=== PATIENT | male | born 1980 | race Caucasian/White ===

== ENCOUNTER 2017-10-18 10:17 | Emergency (ER) | payer SELFPAY ==
[~2017-10-18] VITALS: Ht 175.3 cm; Wt 95.0 kg
[~2017-10-18 10:17] MED LIST: DICY1TAB26 PO; PRIL40CA PO
[2017-10-18 10:21] VITALS: BP 155/75; PULSE 48; RESP 12; TEMP 97.8; O2SAT 98
--- NOTE | 2017-10-18 10:40 | PD ---
HPI Chief Complaint: Back/ Neck Pain or Injury Time Seen by Provider: 10:24 Travel History International Travel<30 days: No Contact w/Intl Traveler<30days: No Traveled to known affect area: No History of Present Illness HPI 37-year-old male with history of right sided arm pain and numbness for the last year. The patient states he is currently being worked up for disability. Patient states numbness in the right thumb, index, and middle finger. He states 4 days ago he developed right shoulder and neck pain as well. He denies any specific injury or recent straining of this area. Patient is noted to be wearing a tennis elbow splint but no carpal tunnel splint. 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 He is waiting to see the disability doctors at this time. On local primary care physician. Patient states in the past he was on gabapentin, but has not been on it for months. He rates his pain in the neck as 8 out of 10 and worse with certain movements. He has no other acute complaints. He has no known drug allergies. [facility] Past Medical History Diverticulitis: Yes Past Surgical History Abdominal Surgery: Yes (hernia repair) Social History Alcohol Use: No Tobacco Use: Yes Substance Use: Yes (marijuana) Allergies-Medications (Allergen,Severity, Reaction): Coded Allergies: No Known Allergies (Unverified , 12/27/15) Reported Meds & Prescriptions Reported Meds & Active Scripts Active Tramadol (Tramadol HCl) 50 Mg Tab 50 Mg PO Q6H PRN Gabapentin 300 Mg Cap 300 Mg PO TID Prednisone 20 Mg Tab 20 Mg PO BID 7 Days Prilosec 40 mg cap (Omeprazole) 40 Mg Cap 40 Mg PO DAILY Bentyl (Dicyclomine HCl) 20 Mg Tab 20 Mg PO Q6H FOR CRAMPS Review of Systems Except as stated in HPI: all other systems reviewed are Neg General / Constitutional: No: Fever Eyes: No: Visual changes HENT: No: Headaches Cardiovascular: No: Chest Pain or Discomfort Respiratory: No: Shortness of Breath Gastrointestinal: No: Abdominal Pain Genitourinary: No: Dysuria Musculoskeletal: Positive: Myalgias, Arthralgias, Limited ROM, Pain Skin: No Rash Neurologic: No: Weakness Psychiatric: No: Depression Endocrine: No: Polydipsia Hematologic/Lymphatic: No: Easy Bruising Physical Exam Narrative GENERAL: Patient appears in no obvious distress. SKIN: Warm and dry. Color. Normal turgor. No rash. HEAD: Atraumatic. Normocephalic. EYES: Pupils equal and round. No scleral icterus. No injection or drainage. ENT: No nasal bleeding or discharge. Mucous membranes pink and moist. [place] clear. Airway is patent. NECK: Trachea midline. No bony tenderness or step-off. Range of motion is full. CARDIOVASCULAR: Regular rate and rhythm. RESPIRATORY: No accessory muscle use. Clear to auscultation. Breath sounds equal bilaterally. MUSCULOSKELETAL: Extremities without clubbing, cyanosis, or edema. No obvious deformities. Patient has grossly positive Tinel's sign at the right carpal tunnel region as well as at the right medial elbow. Patient is reproducible radicular pain palpation of the right posterior shoulder along the upper edge of the scapula. Patient has decreased mutual funds agent strength in the thumb index and ring finger. Rest of exam is unremarkable. NEUROLOGICAL: Awake and alert. No obvious cranial nerve deficits. Motor grossly within normal limits. Five out of 5 muscle strength in the arms and legs. Normal speech. PSYCHIATRIC: Appropriate mood and affect; insight and judgment normal. Data Data Last Documented VS Vital Signs Date Time Temp Pulse Resp B/P (MAP) Pulse Ox O2 Delivery O2 Flow Rate FiO2 10/18/17 10:21 97.8 48 12 155/75 (101) 98 Orders Orders Prednisone (Deltasone) (10/18/17 10:45) Splint Or Brace Apply/Monitor (10/18/17 10:38) Ed Discharge Order (10/18/17 10:55) Cockup Hand Splint (10/18/17 ) [facility] Medical Decision Making Medical Screen Exam Complete: Yes Emergency Medical Condition: Yes Medical Record Reviewed: Yes Differential Diagnosis Right carpal tunnel. Radiculopathy. Neuralgia Narrative Course Patient is placed in a Velcro cock-up splint on the right wrist. Patient is given prednisone 60 mg by mouth. Patient is continued on gabapentin 300 mg 3 times a day #90. Patient is continued on prednisone 20 mg twice a day 7 days. Patient is given tramadol 50 mg one every 6 hours when necessary pain #20. Patient needs close follow-up with disability doctor's or hand surgeon for carpal tunnel evaluation and surgery. Patient is referred to [facility] for primary care. Diagnosis Primary Impression: Severe carpal tunnel syndrome of right wrist Additional Impression: Neuralgia and neuritis, unspecified Referrals: Candelario Houston MD call for appointment [facility] Hand Surgeon Patient Instructions: Carpal Tunnel Surgery (GEN), Carpal Tunnel Syndrome (DC) , Carpal Tunnel Syndrome Exercises (GEN), General Instructions Med/Other Pt SpecificInfo: Prescription(s) given Scripts Tramadol (Tramadol) 50 Mg Tab 50 MG PO Q6H Y for PAIN, #20 TAB 0 Refills Prov: Alisha Dumont DO 10/18/17 Gabapentin (Gabapentin) 300 Mg Cap 300 MG PO TID, #90 CAP 0 Refills Prov: Alisha Dumont DO 10/18/17 Prednisone (Prednisone) 20 Mg Tab 20 MG PO BID for 7 Days, #14 TAB 0 Refills Prov: Alisha Dumont DO 10/18/17 Disposition: 01 DISCHARGE HOME Condition: Stable Jose Travis Oct 18, 2017 10:40
[2017-10-18] MEDS ORDERED: TRAM50TA PO (10:41)
[2017-10-18] MEDS ORDERED: GABA300C5 PO (10:41)
[2017-10-18] MEDS ORDERED: PRED20 PO (10:41)
[2017-10-18] MEDS ORDERED: predniSONE 20 MG TAB PO ONE (10:45)
== END 2017-10-18 11:45 | disposition home or self-care (01) ==
LOC: NEPD 10:17
DX: G56.01 Carpal tunnel syndrome, right upper limb (principal); M54.2 Cervicalgia
CPT/HCPCS: 99284; J7512; L3908

== ENCOUNTER 2017-12-07 12:20 | Emergency (ER) | payer SELFPAY ==
[~2017-12-07] VITALS: Ht 172.7 cm; Wt 87.0 kg
[~2017-12-07 12:20] MED LIST changes: +GABA300C5 PO; +PRED20 PO; +TRAM50TA PO
[2017-12-07 12:21] VITALS: BP 126/78; PULSE 60; RESP 13; TEMP 98.3; O2SAT 98
== END 2017-12-07 15:34 | disposition left against medical advice (07) ==
LOC: NED 12:20
DX: R10.9 Unspecified abdominal pain (principal)
CPT/HCPCS: 99281